=== PATIENT | female | born 1960 | race Caucasian/White ===

== ENCOUNTER 2018-12-15 12:43 | Outpatient (CLI) | payer MEDICARE | END 2018-12-15 12:44 | disposition home or self-care (01) | LOC: BICMAMMO 12:43 | PROVIDERS: ATTEND Internal Medicine | DX: Z12.31 Encounter for screening mammogram for malignant neoplasm of breast (principal); Z80.3 Family history of malignant neoplasm of breast | CPT/HCPCS: 77063; 77067 ==

== ENCOUNTER 2019-07-15 09:30 | Outpatient (CLI) | payer MEDICARE, OTHER ==
--- NOTE | 2019-07-15 10:50 | MRI ---
EXAM: Right shoulder MRI without contrast: HISTORY: Traumatic complete tear right rotator cuff, right shoulder pain after falling COMPARISON: None FINDINGS: Multiplanar, multisequence MRI examination of the shoulder is performed. A C joint:AC joint arthrosis with some subchondral cystic changes with some fluid and fat stranding i n the subacromial bursa. Mild glenohumeral joint arthrosis and osteophytosis. Supraspinatus tendon: Full-thickness, retracted insertional tear of the anterior supraspinatus tendon . Infraspinatus tendon: Undersurface and delaminating tear of the infraspinatus tendon extending to the myotendinous region Biceps tendon: Intact. Subscapularis tendon: Tendinopathy Rotator cuff muscles: Within normal limits of signal and volume. Glenoid labrum: No evidence for labral tear. No evidence for acute osteochondral defect or significant abnormal marrow signal. 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 Full-thickness retracted insertional supraspinatus tendon tear. Undersurface and delaminating infraspinatus tendon tear. Other findings as above.
== END 2019-07-15 09:31 | disposition home or self-care (01) ==
LOC: BICMRI 09:30
PROVIDERS: ATTEND Orthopaedic Surgery
DX: S46.011A Strain of muscle(s) and tendon(s) of the rotator cuff of right shoulder, initial encounter (principal); M19.011 Primary osteoarthritis, right shoulder

== ENCOUNTER 2019-07-27 08:11 | Outpatient (CLI) | payer OTHER ==
[2019-07-27 14:26] LABS: #Basophils 0.1 thou/uL (0.0-0.2); #Eosinphils 0.4 thou/uL (0.0-0.7); #Lymphocytes 2.8 thou/uL (1.20-3.40); #Monocytes 0.8 thou/uL (0.11-0.59); #Neutrophils 4.4 thou/uL (1.40-6.50); %Basophils 1.1 % (0.0-1.0); %Eosinophils 4.9 % (0.0-10.0); %Lymphocytes 33.1 % (21.0-51.0); %Monocytes 8.8 % (0.0-10.0); Hemoglobin 15.4 g/dL (12.0-16.0); Mean Corpuscular HGB CONC 33.6 g/dL (32.0-36.0); Mean Corpuscular Hemoglobin 29.3 pg (27.0-31.0); Mean Corpuscular Volume 87.3 fL (78.0-98.0); Platelet Count 320 thou/uL (130-400); RBC Distribution Width 13.1 % (11.5-14.5); Red Blood Cell (RBC) Count 5.24 mill/uL (4.20-5.40); White Blood Cell (WBC) Count 8.5 thou/uL (4.8-10.8)
[2019-07-27 14:48] LABS: Anion Gap 13 mmol/L (10-20); BUN (Urea Nitrogen) 20 mg/dL (9.8-20.1); Calc. Creatinine Clearance 0 mL/min (70-130); Carbon Dioxide 24 mmol/L (23-31); Chloride 102 mmol/L (98-107); Estimated GFR-MDRD 41; Glucose 119 mg/dL (80-115); Potassium 4.5 mmol/L (3.5-5.1); Sodium 134 mmol/L (136-145)
--- NOTE | 2019-07-29 16:42 | EKG ---
Test Reason : Blood Pressure : / mmHG Vent. Rate : 069 BPM Atrial Rate : 069 BPM P-R Int : 194 ms QRS Dur : 066 ms QT Int : 386 ms P-R-T Axes : 023 210 054 degrees QTc Int : 413 ms Normal sinus rhythm Right superior axis deviation Possible Right ventricular hypertrophy Cannot rule out Anterior infarct , age undetermined Abnormal ECG When compared with ECG of 14-JUL-2016 21:40, No significant change was found Confirmed by DR. Eligio SHELTON ([id number]) on 07/29/2019 4:41:52 PM Referred By: ANDERS Confirmed By:DR. Eligio SHELTON
== END 2019-07-27 08:12 | disposition home or self-care (01) ==
LOC: LABBT 08:11
PROVIDERS: ATTEND Internal Medicine Cardiovascular Disease
DX: Z01.818 Encounter for other preprocedural examination (principal); S46.011A Strain of muscle(s) and tendon(s) of the rotator cuff of right shoulder, initial encounter
CPT/HCPCS: 80048; 85025; 93005; 93010

== ENCOUNTER 2019-07-30 06:57 | Day surgery (SDC) | payer OTHER ==
[2019-07-27 13:37] VITALS: BMI 31.3
[2019-07-30] MEDS ORDERED: Fentanyl 100 MCG/2 ML VIAL ONE (08:16)
[2019-07-30] MEDS ORDERED: Midazolam HCl 2 mg/2 ml Vial ONE (08:16)
[2019-07-30] MEDS ORDERED: Clindamycin/D5W 600 mg/50 ml Premix Bag ONE (08:32)
[2019-07-30] MEDS ORDERED: traMADol HCl 50 MG TAB PO PRN ×2 (10:02)
[2019-07-30] MEDS ORDERED: Zolpidem Tartrate 5 MG TAB PO PRN (10:02)
[2019-07-30] MEDS ORDERED: HYDROcodone/Acetaminophen 5/325 mg Tablet PO PRN ×2 (10:02)
[2019-07-30] MEDS ORDERED: Ropivacaine 0.2% 550 ML 550 ML NERVE BLCK SCH (10:02)
[2019-07-30] MEDS ORDERED: Ondansetron PF 4 MG/2 ML Vial IVP PRN (10:02)
[2019-07-30] MEDS ORDERED: Promethazine HCl 25 MG/ML VIAL IM PRN (10:02)
[2019-07-30] MEDS ORDERED: Ketorolac Tromethamine 30 MG/ML VIAL IVP SCH (12:00)
--- NOTE | 2019-07-30 17:53 | OP ---
DATE OF PROCEDURE: 07/30/2019 PROCEDURES PERFORMED: Right arthroscopic rotator cuff repair and right arthroscopic subacromial decompression. ANESTHESIA: General. BLOOD LOSS: Minimal. SPECIMEN: None. DRAIN: None. COMPLICATION: None. DESCRIPTION OF PROCEDURE: The patient was taken to the operating room, where general anesthesia was induced. The patient was placed in left lateral decubitus position. Right arm was prepped and draped in usual sterile fashion. A 15 pounds of traction was applied. I placed the scope in the glenohumeral joint, which appeared to be free of disease. The biceps in good condition. She had a full-thickness rotator cuff tear. Scope was placed in the subacromial bursa. A generous bursectomy was performed. The CA ligament was taken down. Anterior and inferior acromioplasty was performed to mobilize the rotator cuff. I freshened up the greater tuberosity. I placed a triple loaded corkscrew through the defect. Passed sutures through the rotator cuff and obtained a good watertight repair/tying sutures over the rotator cuff and then reinforced this with a double row type of repair. The shoulder was drained. Ports were closed with nylon suture. Sterile dressings applied. Job ID: [id number]
== END 2019-07-30 14:55 | disposition home or self-care (01) ==
LOC: SDC 06:57
PROVIDERS: ATTEND Orthopaedic Surgery
PROC: 0RNJ4ZZ Release Right Shoulder Joint, Percutaneous Endoscopic Approach (ICD-10-PCS; principal; 2019-07-30)
PROC: 0LQ14ZZ Repair Right Shoulder Tendon, Percutaneous Endoscopic Approach (ICD-10-PCS; principal; 2019-07-30)
PROC: 3E0T3BZ Introduction of Anesthetic Agent into Peripheral Nerves and Plexi, Percutaneous Approach (ICD-10-PCS; principal; 2019-07-30)
DX: M75.121 Complete rotator cuff tear or rupture of right shoulder, not specified as traumatic (principal); G47.30 Sleep apnea, unspecified; I10 Essential (primary) hypertension; E11.9 Type 2 diabetes mellitus without complications; G89.18 Other acute postprocedural pain; Z79.4 Long term (current) use of insulin; Z86.73 Personal history of transient ischemic attack (TIA), and cerebral infarction without residual deficits; Z91.040 Latex allergy status; Z91.041 Radiographic dye allergy status; Z87.891 Personal history of nicotine dependence; Z88.0 Allergy status to penicillin; Z88.5 Allergy status to narcotic agent; Z99.89 Dependence on other enabling machines and devices
CPT/HCPCS: A4306; C1713; J2250; J2795; J3010; J3490

== ENCOUNTER 2020-07-06 11:08 | Outpatient (CLI) | payer OTHER ==
--- NOTE | 2020-07-06 12:45 | MMO ---
Bilateral MAMMO Bilat Screen [facility]. CLINICAL HISTORY: Patient is 60 years old and is seen for screening. The patient has no family history of breast cancer. The patient has no personal history of cancer. VIEWS: The views performed were: bilateral craniocaudal with tomosynthesis and bilateral mediolateral oblique with tomosynthesis. FILMS COMPARED: The present examination has been compared to prior imaging studies performed at [facility] on 07/23/2011 and 12/15/2018, and at [facility] on 08/08/2015 and 09/20/2017. This study has been interpreted with the assistance of computer-aided detection. MAMMOGRAM FINDINGS: There are scattered fibroglandular densities. There are stable benign appearing calcifications seen in both breasts. There are no suspicious masses, suspicious calcifications, or new areas of architectural distortion. IMPRESSION: THERE IS NO MAMMOGRAPHIC EVIDENCE OF MALIGNANCY. A ROUTINE FOLLOW-UP MAMMOGRAM IN 1 YEAR IS RECOMMENDED. THE RESULTS OF THIS EXAM WERE SENT TO THE PATIENT. ACR BI-RADS Category 2 - Benign finding MAMMOGRAPHY NOTE: 1. A negative mammogram report should not delay a biopsy if a dominant of clinically suspicious mass is present. 2. Approximately 10% to 15% of breast cancers are not detected by mammography. 3. Adenosis and dense breasts may obscure an underlying neoplasm. Reported by: KANDI NARVAEZ MD Electonically Signed: [id number]
== END 2020-07-06 11:09 | disposition home or self-care (01) ==
LOC: BICMAMMO 11:08
PROVIDERS: ATTEND Internal Medicine
DX: Z12.31 Encounter for screening mammogram for malignant neoplasm of breast (principal)
CPT/HCPCS: 77063; 77067

== ENCOUNTER 2021-07-24 12:15 | Outpatient (CLI) | payer OTHER, MEDICARE | END 2021-07-24 12:16 | disposition home or self-care (01) | LOC: BICMAMMO 12:15 | PROVIDERS: ATTEND Internal Medicine | DX: Z12.31 Encounter for screening mammogram for malignant neoplasm of breast (principal); Z80.3 Family history of malignant neoplasm of breast | CPT/HCPCS: 77063; 77067 ==

== ENCOUNTER 2021-08-24 16:54 | Emergency (ER) | payer OTHER, MEDICARE ==
[2021-08-24] MEDS ORDERED: Ketorolac Tromethamine 30 MG/ML VIAL ONE (18:15)
== END 2021-08-24 18:40 | disposition home or self-care (01) ==
LOC: ERS 16:54
DX: S93.401A Sprain of unspecified ligament of right ankle, initial encounter (principal); E11.9 Type 2 diabetes mellitus without complications; M32.9 Systemic lupus erythematosus, unspecified; I10 Essential (primary) hypertension; G47.30 Sleep apnea, unspecified; M79.7 Fibromyalgia; M06.9 Rheumatoid arthritis, unspecified; M19.90 Unspecified osteoarthritis, unspecified site; Z86.73 Personal history of transient ischemic attack (TIA), and cerebral infarction without residual deficits; W01.0XXA Fall on same level from slipping, tripping and stumbling without subsequent striking against object, initial encounter
CPT/HCPCS: 96372; J1885

== ENCOUNTER 2022-10-17 08:09 | Outpatient (CLI) | payer OTHER, MEDICARE | END 2022-10-17 08:10 | disposition home or self-care (01) | LOC: BICMAMMO 08:09 | PROVIDERS: ATTEND Internal Medicine | DX: Z12.31 Encounter for screening mammogram for malignant neoplasm of breast (principal); Z80.3 Family history of malignant neoplasm of breast | CPT/HCPCS: 77063; 77067 ==

== ENCOUNTER 2023-01-15 16:03 | Observation (INO) | payer MEDICARE, OTHER ==
[2023-01-15 16:40] LABS: #Basophils 0.1 thou/uL (0.0-0.2); #Eosinphils 0.1 thou/uL (0.0-0.7); #Monocytes 0.8 thou/uL (0.11-0.59); #Neutrophils 4.7 thou/uL (1.40-6.50); %Basophils 1.1 % (0.0-1.0); %Eosinophils 1.3 % (0.0-10.0); %Lymphocytes 41.1 % (21.0-51.0); %Monocytes 7.7 % (0.0-10.0); %Neutrophils 48.8 % (42.0-75.0); Hemoglobin 13.6 g/dL (12.0-16.0); Mean Corpuscular HGB CONC 32.8 g/dL (32.0-36.0); Mean Corpuscular Hemoglobin 28.3 pg (27.0-31.0); Mean Corpuscular Volume 86.1 fl (78.0-98.0); Mean Platelet Volume 7.8 fL (7.4-10.4); Platelet Count 295 10x3/uL (130-400); RBC Distribution Width 14.7 % (11.5-14.5); White Blood Cell (WBC) Count 9.7 10x3/uL (4.8-10.8)
[2023-01-15] MEDS ORDERED: Aspirin Chewable 81 MG TAB ONE (16:49)
[2023-01-15 17:01] LABS: ALT (SGPT) 24 U/L (8-55); AST (SGOT) 19 U/L (5-34); Alkaline Phosphatase 81 U/L (40-110); Anion Gap 14 mmol/L (10-20); BUN (Urea Nitrogen) 21 mg/dL (9.8-20.1); Bilirubin, Total 0.4 mg/dL (0.2-1.2); Calc. Creatinine Clearance 0 mL/min (70-130); Carbon Dioxide 25 mmol/L (23-31); Chloride 103 mmol/L (98-107); Estimated GFR 70; Globulin 2.5 g/dL (2.4-3.5); Glucose 214 mg/dL (80-115); Lipase 87 U/L (8-78); Potassium 3.4 mmol/L (3.5-5.1); Protein, Total 6.5 g/dL (5.8-8.1); Sodium 139 mmol/L (136-145)
[2023-01-15] MEDS ORDERED: HumaLOG 300 UNITS/3 ML VIAL SC PRN (18:14)
[2023-01-15] MEDS ORDERED: Dextrose 50% Abboject 50 ML SYRINGE SLOW IVP PRN (18:14)
[2023-01-15] MEDS ORDERED: Dextrose 5% in Water 1,000 ML IV PRN (18:14)
[2023-01-15] MEDS ORDERED: Morphine 4 MG/ML VIAL SLOW IVP PRN (18:20)
[2023-01-15] MEDS ORDERED: BIOTIN 10000 MCG PO SCH (21:00)
[2023-01-15] MEDS ORDERED: CO Q-10 CAPSULE 100 MG PO SCH (21:00)
[2023-01-15] MEDS ORDERED: Gabapentin 300 MG CAP PO SCH (21:00)
[2023-01-15] MEDS ORDERED: Atorvastatin Calcium 40 MG TAB PO SCH (21:00)
[2023-01-15 22:25] VITALS: BMI 32.3
[2023-01-15 22:48] LABS: Troponin I Less than 0.010 ng/mL (< 0.028)
[2023-01-15] MEDS: Metoprolol Tartrate 50 MG TAB PO SCH (23:03)
[2023-01-15] MEDS: Acyclovir 400 mg Tablet PO SCH (23:17)
[2023-01-16 05:08] LABS: #Eosinphils 0.2 thou/uL (0.0-0.7); #Lymphocytes 4.2 thou/uL (1.20-3.40); #Monocytes 0.8 thou/uL (0.11-0.59); #Neutrophils 4.1 thou/uL (1.40-6.50); %Basophils 0.5 % (0.0-1.0); %Eosinophils 2.1 % (0.0-10.0); %Lymphocytes 44.6 % (21.0-51.0); %Monocytes 8.5 % (0.0-10.0); %Neutrophils 44.3 % (42.0-75.0); Hemoglobin 12.3 g/dL (12.0-16.0); Mean Corpuscular HGB CONC 32.8 g/dL (32.0-36.0); Mean Corpuscular Hemoglobin 28.1 pg (27.0-31.0); Mean Corpuscular Volume 85.9 fl (78.0-98.0); Mean Platelet Volume 7.9 fL (7.4-10.4); Platelet Count 283 10x3/uL (130-400); RBC Distribution Width 14.6 % (11.5-14.5); Red Blood Cell (RBC) Count 4.36 mill/uL (4.20-5.40); White Blood Cell (WBC) Count 9.3 10x3/uL (4.8-10.8)
[2023-01-16 05:42] LABS: Anion Gap 14 mmol/L (10-20); BUN (Urea Nitrogen) 19 mg/dL (9.8-20.1); Calc. Creatinine Clearance 107 mL/min (70-130); Carbon Dioxide 26 mmol/L (23-31); Chloride 105 mmol/L (98-107); Estimated GFR 87; Glucose 105 mg/dL (80-115); Potassium 3.4 mmol/L (3.5-5.1); Sodium 142 mmol/L (136-145)
[2023-01-16] MEDS: Acyclovir 400 mg Tablet PO SCH (08:33)
[2023-01-16] MEDS: Metoprolol Tartrate 50 MG TAB PO SCH (08:36)
[2023-01-16 08:42] LABS: Magnesium 1.8 mg/dL (1.6-2.6)
[2023-01-16] MEDS ORDERED: Fluticasone Propionate Nasal Spray 16 gm Bottle NASAL SCH (09:00)
[2023-01-16] MEDS ORDERED: Loratadine 10 MG TAB PO SCH (09:00)
[2023-01-16] MEDS ORDERED: Montelukast Sodium 10 mg Tablet PO SCH (09:00)
[2023-01-16] MEDS ORDERED: Insulin Glargine 30 UNITS/0.3 ML VIAL SC SCH (09:00)
[2023-01-16] MEDS ORDERED: Ascorbic Acid 500 mg Chewable Tablet PO SCH (09:00)
[2023-01-16] MEDS ORDERED: Empagliflozin 25 MG TAB PO SCH (09:00)
[2023-01-16] MEDS ORDERED: Losartan 25 MG TAB PO SCH (09:00)
[2023-01-16] MEDS ORDERED: Aspirin Chewable 81 MG TAB PO SCH (09:00)
[2023-01-16] MEDS ORDERED: DULoxetine 20 MG CAP PO SCH (09:00)
[2023-01-16] MEDS ORDERED: Furosemide 20 MG TAB PO SCH (09:00)
[2023-01-16] MEDS ORDERED: ADENOSINE 60 MG/20 ML VIAL ONE (09:09)
[2023-01-16 14:13] VITALS: BP 129/71; TEMP 97.5
[2023-01-16] MEDS ORDERED: Electrolyte Replacement Protocol FS SCH (16:00)
[2023-01-16] MEDS ORDERED: Potassium Chloride 20 MEQ TAB PO SCH (16:00)
== END 2023-01-16 18:00 | disposition home or self-care (01) ==
LOC: SUATTDRO 16:03 → ERS 16:03 → 2SW 18:06
PROVIDERS: ADMIT Family Medicine; ATTEND Nurse Practitioner Family
DX: R07.2 Precordial pain (principal); I10 Essential (primary) hypertension; E11.9 Type 2 diabetes mellitus without complications; E78.5 Hyperlipidemia, unspecified; M79.7 Fibromyalgia; K21.9 Gastro-esophageal reflux disease without esophagitis; Z66 Do not resuscitate; Z86.73 Personal history of transient ischemic attack (TIA), and cerebral infarction without residual deficits; Z79.4 Long term (current) use of insulin; Z79.84 Long term (current) use of oral hypoglycemic drugs; Z79.85 Long-term (current) use of injectable non-insulin antidiabetic drugs; Z79.899 Other long term (current) drug therapy; Z88.0 Allergy status to penicillin; Z88.1 Allergy status to other antibiotic agents; Z88.8 Allergy status to other drugs, medicaments and biological substances; Z91.040 Latex allergy status; Z91.041 Radiographic dye allergy status; Z91.048 Other nonmedicinal substance allergy status; Z20.822 Contact with and (suspected) exposure to COVID-19
CPT/HCPCS: 36415; 36416; 71045; 78452; 80048; 80053; 83690; 83735; 83880; 84443; 84484; 85025; 85379; 93005; 93017; 94760; 96374; A9500; G0378; J0153; J2270; U0003; U0005

== ENCOUNTER 2023-07-26 18:37 | Emergency (ER) | payer OTHER ==
[2023-07-26 19:13] LABS: #Eosinphils 0.3 thou/uL (0.0-0.7); #Monocytes 0.5 thou/uL (0.11-0.59); #Neutrophils 3.3 thou/uL (1.40-6.50); %Basophils 0.6 % (0.0-1.0); %Eosinophils 3.7 % (0.0-10.0); %Lymphocytes 38.7 % (21.0-51.0); %Monocytes 7.6 % (0.0-10.0); %Neutrophils 48.8 % (42.0-75.0); Hematocrit 40.9 % (36.0-47.0); Hemoglobin 13.3 g/dL (12.0-16.0); Mean Corpuscular HGB CONC 32.5 g/dL (32.0-36.0); Mean Corpuscular Hemoglobin 27.9 pg (27.0-31.0); Mean Corpuscular Volume 85.9 fl (78.0-98.0); Mean Platelet Volume 10.8 fL (7.4-10.4); Platelet Count 251 10x3/uL (130-400); RBC Distribution Width 15.7 % (11.5-14.5); Red Blood Cell (RBC) Count 4.76 mill/uL (4.20-5.40); White Blood Cell (WBC) Count 6.7 10x3/uL (4.8-10.8)
[2023-07-26] MEDS ORDERED: Ketorolac Tromethamine 30 MG/ML VIAL ONE (19:35)
[2023-07-26] MEDS ORDERED: HYDROcodone/Acetaminophen 5/325 mg Tablet ONE (19:35)
[2023-07-26 19:48] LABS: Troponin I Less than 0.010 ng/mL (< 0.028)
[2023-07-26 19:51] LABS: ALT (SGPT) 26 U/L (8-55); AST (SGOT) 16 U/L (5-34); Albumin 4.1 g/dL (3.4-4.8); Alkaline Phosphatase 95 U/L (40-110); Anion Gap 14 mmol/L (10-20); BUN (Urea Nitrogen) 21 mg/dL (9.8-20.1); Bilirubin, Total 0.3 mg/dL (0.2-1.2); Calc. Creatinine Clearance 0 mL/min (70-130); Calcium 9.5 mg/dL (7.8-10.44); Carbon Dioxide 23 mmol/L (23-31); Chloride 104 mmol/L (98-107); Estimated GFR 59; Globulin 2.6 g/dL (2.4-3.5); Glucose 183 mg/dL (80-115); Lipase 91 U/L (8-78); Potassium 4.2 mmol/L (3.5-5.1); Protein, Total 6.7 g/dL (5.8-8.1); Sodium 137 mmol/L (136-145)
== END 2023-07-26 20:13 | disposition home or self-care (01) ==
LOC: ERS 18:37
DX: R07.89 Other chest pain (principal); M79.7 Fibromyalgia; I10 Essential (primary) hypertension; E11.9 Type 2 diabetes mellitus without complications
CPT/HCPCS: 71045; 80053; 83690; 84484; 85025; 93005; 94760; 96374; J1885

== ENCOUNTER 2024-10-14 16:58 | Emergency (ER) | payer OTHER ==
[2024-10-14 17:58] LABS: #Basophils 0.05 10x3/uL (0.0-0.2); %Basophils 0.7 % (0.0-1.0); %Eosinophils 4.4 % (0.0-10.0); %Lymphocytes 38.9 % (21.0-51.0); %Monocytes 7.1 % (0.0-10.0); %Neutrophils 48.6 % (42.0-75.0); Hematocrit 42.3 % (36.0-47.0); Hemoglobin 14.2 g/dL (12.0-16.0); Mean Corpuscular HGB CONC 33.6 g/dL (32.0-36.0); Mean Corpuscular Hemoglobin 29.6 pg (27.0-31.0); Mean Corpuscular Volume 88.1 fL (78.0-98.0); Mean Platelet Volume 9.9 fL (7.4-10.4); Platelet Count 276 10x3/uL (130-400)
[2024-10-14 18:12] LABS: ALT (SGPT) 30 U/L (8-55); AST (SGOT) 19 U/L (5-34); Albumin 3.8 g/dL (3.4-4.8); Alkaline Phosphatase 102 U/L (40-110); Anion Gap 13 mmol/L (10-20); BUN (Urea Nitrogen) 14 mg/dL (9.8-20.1); Bilirubin, Total 0.8 mg/dL (0.2-1.2); Calc. Creatinine Clearance 0 mL/min (70-130); Calcium 9.1 mg/dL (7.8-10.44); Carbon Dioxide 25 mmol/L (23-31); Chloride 106 mmol/L (98-107); Estimated GFR 63; Globulin 2.9 g/dL (2.4-3.5); Glucose 151 mg/dL (80-115); Potassium 4.1 mmol/L (3.5-5.1); Protein, Total 6.7 g/dL (5.8-8.1); Sodium 140 mmol/L (136-145)
[2024-10-14 18:55] LABS: Bilirubin Negative (Negative); Blood, Urine Negative (Negative); CAUTI Indications for Culture Pelvic or flank pain; Clarity Clear (Clear); Glucose, Urine (Dipstick) Normal (Negative); Ketone, Urine Negative (Negative); Leukocyte 500 Leu/uL (Negative); Nitrite 1+ (Negative); Protein, Urine (Dipstick) Negative (Neg-Trace); RBC/HPF 0-3 HPF (0-3); Specific Gravity, Urine 1.012 (1.002-1.036); Urobilinogen Normal mg/dL (Less than 2); WBC/HPF 21-50 HPF (0-3)
[2024-10-14 19:05] LABS: Bacteria/HPF Rare-Few HPF (None Seen); Urine Culture Reflex Yes Yes
[2024-10-14] MEDS ORDERED: Ketorolac Tromethamine 30 MG (1 mL) VIAL ONE (20:22)
[2024-10-14] MEDS ORDERED: Ondansetron ODT 4 MG TAB ONE ×2 (20:22→23:18)
[2024-10-14] MEDS ORDERED: HYDROcodone/Acetaminophen 5/325 mg Tablet ONE (23:18)
== END 2024-10-15 00:34 | disposition home or self-care (01) ==
LOC: ERS 16:58
DX: N39.0 Urinary tract infection, site not specified (principal); E11.9 Type 2 diabetes mellitus without complications; I10 Essential (primary) hypertension; Z86.73 Personal history of transient ischemic attack (TIA), and cerebral infarction without residual deficits; Z87.891 Personal history of nicotine dependence
CPT/HCPCS: 36415; 74176; 80053; 81001; 83605; 85025; 87077; 87086; 87186; 96372; J1885; Q0162

== ENCOUNTER 2024-10-18 11:24 | Emergency (ER) | payer MEDICARE, OTHER ==
[2024-10-18] MEDS ORDERED: Iopamidol-370 76% 500 ML MDV (1 ML CHARGE) ONE (11:25)
[2024-10-18] MEDS ORDERED: Morphine 2 MG/ML VIAL ONE (12:58)
[2024-10-18] MEDS ORDERED: Ondansetron PF 4 MG/2 ML Vial ONE (12:58)
[2024-10-18 13:13] LABS: #Basophils 0.04 10x3/uL (0.0-0.2); %Basophils 0.6 % (0.0-1.0); %Lymphocytes 24.2 % (21.0-51.0); %Monocytes 7.8 % (0.0-10.0); %Neutrophils 66.1 % (42.0-75.0); Hematocrit 44.3 % (36.0-47.0); Hemoglobin 15.1 g/dL (12.0-16.0); Mean Corpuscular HGB CONC 34.1 g/dL (32.0-36.0); Mean Corpuscular Hemoglobin 29.4 pg (27.0-31.0); Mean Corpuscular Volume 86.4 fL (78.0-98.0); Mean Platelet Volume 10.2 fL (7.4-10.4); Platelet Count 272 10x3/uL (130-400); RBC Distribution Width 13.5 % (11.5-14.5); Red Blood Cell (RBC) Count 5.13 mill/uL (4.20-5.40)
[2024-10-18 13:29] LABS: ALT (SGPT) 27 U/L (8-55); AST (SGOT) 19 U/L (5-34); Albumin 4.2 g/dL (3.4-4.8); Alkaline Phosphatase 114 U/L (40-110); Anion Gap 14 mmol/L (10-20); BUN (Urea Nitrogen) 12 mg/dL (9.8-20.1); Bilirubin, Total 0.6 mg/dL (0.2-1.2); Calc. Creatinine Clearance 0 mL/min (70-130); Calcium 9.5 mg/dL (7.8-10.44); Carbon Dioxide 24 mmol/L (23-31); Chloride 104 mmol/L (98-107); Estimated GFR 72; Glucose 128 mg/dL (80-115); Lipase 39 U/L (8-78); Potassium 3.7 mmol/L (3.5-5.1); Protein, Total 7.2 g/dL (5.8-8.1); Sodium 138 mmol/L (136-145)
[2024-10-18] MEDS ORDERED: diphenhydrAMINE 50 MG/ML VIAL ONE (13:47)
[2024-10-18] MEDS ORDERED: methylPREDNISolone Sod Succ 40 MG VIAL ONE (13:47)
[2024-10-18] MEDS ORDERED: Famotidine/PF 20 mg/2ml Vial ONE (13:50)
[2024-10-18 14:33] LABS: Bacteria/HPF 3+ HPF (None Seen); Bilirubin Negative (Negative); Blood, Urine Trace (Negative); CAUTI Indications for Culture Dysuria,urgency,freq; Clarity Clear (Clear); Glucose, Urine (Dipstick) Normal (Negative); Ketone, Urine Negative (Negative); Leukocyte 500 Leu/uL (Negative); Nitrite Negative (Negative); Protein, Urine (Dipstick) Negative (Neg-Trace); RBC/HPF 0-3 HPF (0-3); Specific Gravity, Urine 1.001 (1.002-1.036); Squamous Epithelial 0-3 HPF (0-3); Urobilinogen Normal mg/dL (Less than 2); WBC/HPF Greater than 50 HPF (0-3)
[2024-10-18 14:39] LABS: Urine Culture Reflex Yes Yes
[2024-10-18] MEDS ORDERED: LevoFLOXacin 750 mg/D5W 150 ml Premix Bag ONE (14:59)
== END 2024-10-18 17:12 | disposition home or self-care (01) ==
LOC: ERS 11:24
DX: K59.00 Constipation, unspecified (principal); N39.0 Urinary tract infection, site not specified; I10 Essential (primary) hypertension; E11.9 Type 2 diabetes mellitus without complications; M79.7 Fibromyalgia; Z87.891 Personal history of nicotine dependence
CPT/HCPCS: 74018; 74177; 80053; 81001; 83690; 85025; 87077; 87086; 87186; J1200; J1956; J2272; J2405; J2919; J3490; 36415; 96361; 96365; 96366; 96375